=== PATIENT | female | born 1955 | race Caucasian/White ===

== ENCOUNTER → 2016-07-14 | Outpatient (CLI) | payer OTHER | LOC: FIMAGING 12:11 | PROVIDERS: ATTEND Orthopaedic Surgery | DX: M25.812 Other specified joint disorders, left shoulder (principal) ==

== ENCOUNTER → 2017-02-25 | Outpatient (CLI) | payer OTHER | LOC: FIMAGING 10:00 | PROVIDERS: ATTEND Family Medicine | DX: D18.03 Hemangioma of intra-abdominal structures (principal); K76.89 Other specified diseases of liver ==

== ENCOUNTER → 2017-07-12 | Outpatient (CLI) | payer OTHER | LOC: CIMAGING 10:47 | PROVIDERS: ATTEND Physician Assistant Medical | DX: Z12.31 Encounter for screening mammogram for malignant neoplasm of breast (principal) ==

== ENCOUNTER → 2018-07-15 | Outpatient (CLI) | payer OTHER | LOC: CIMAGING 12:51 | PROVIDERS: ATTEND Family Medicine | DX: N64.4 Mastodynia (principal) ==